=== PATIENT | female | born 1935 | race Caucasian/White ===

== ENCOUNTER 2023-03-29 15:20 | Day surgery (SDC) | payer MEDICARE, BC ==
[2023-03-29] MEDS ORDERED: LIDOCAINE HCL 1% 50 MG/5 ML VL PF IJ ONE (15:21)
[2023-03-29] MEDS ORDERED: BUPIVACAINE 0.5% VIAL IJ ONE (15:21)
[2023-03-29] MEDS ORDERED: Depo-Medrol 40 MG/ML IM ONE (15:21)
--- NOTE | 2023-03-29 19:22 | XRAY ---
Indication: Right knee injection. Intraoperative fluoroscopy provided for 6 seconds. Single digital spot image submitted for interpretation demonstrates needle tip projecting over the right femur intercondylar notch. Small amount of contrast injected for needle tip placement. Correlate with intraoperative findings/report.
--- NOTE | 2023-03-30 09:30 | XRAY ---
6 seconds of fluoroscopy was used in surgery for a right intra-articular knee injection.
== END 2023-03-29 16:45 | disposition home or self-care (01) ==
LOC: SDC-PAIN 15:20
PROVIDERS: ATTEND Psychiatry & Neurology Pain Medicine
DX: M17.11 Unilateral primary osteoarthritis, right knee (principal); E11.9 Type 2 diabetes mellitus without complications; Z79.899 Other long term (current) drug therapy
CPT/HCPCS: 20610; 73560; 77002; 82947; J1030; J2001; Q9966

== ENCOUNTER 2023-05-24 08:24 | Day surgery (SDC) | payer MEDICARE, BC ==
[2023-05-24] MEDS ORDERED: LIDOCAINE HCL 2% 100 MG/5 ML IJ ONE (08:25)
[2023-05-24] MEDS ORDERED: Depo-Medrol 40 MG/ML IM ONE (08:25)
[2023-05-24] MEDS ORDERED: DIPRIVAN 200 MG/20 ML IV ONE (10:39)
[2023-05-24] MEDS ORDERED: Lactated Ringers 1,000 ML IV ONE (11:16)
--- NOTE | 2023-05-24 11:33 | XRAY ---
Indication: Bilateral L4-S1 MBB. Intraoperative fluoroscopy provided for 11 seconds. Single digital spot image submitted for interpretation demonstrates posterior needle tips projecting over the expected left and right L4-S1 nerve roots. Correlate with intraoperative findings/report.
--- NOTE | 2023-05-24 12:00 | XRAY ---
11 seconds of fluoroscopy was used in surgery for a bilateral L4-S1 MBB.
== END 2023-05-24 11:07 | disposition home or self-care (01) ==
LOC: SDC-PAIN 08:24
PROVIDERS: ATTEND Psychiatry & Neurology Pain Medicine
DX: M47.816 Spondylosis without myelopathy or radiculopathy, lumbar region (principal); E11.9 Type 2 diabetes mellitus without complications; Z79.899 Other long term (current) drug therapy
CPT/HCPCS: 64493; 64494; 72020; 77002; 82947; J1030; J2704

== ENCOUNTER 2023-06-14 09:27 | Day surgery (SDC) | payer MEDICARE, BC ==
[2023-06-14] MEDS ORDERED: Depo-Medrol 40 MG/ML IM ONE (09:28)
[2023-06-14] MEDS ORDERED: BUPIVACAINE 0.5% VIAL IJ ONE (09:28)
[2023-06-14] MEDS ORDERED: DIPRIVAN 200 MG/20 ML IV ONE (10:55)
--- NOTE | 2023-06-14 12:43 | XRAY ---
Indication: Bilateral L4-S1 MBB. Intraoperative fluoroscopy provided for 9 seconds. Single digital spot image submitted for interpretation demonstrates posterior needle tips projecting over the expected left and right L4-S1 nerve roots. Correlate with intraoperative findings/report.
--- NOTE | 2023-06-14 13:02 | XRAY ---
9 seconds of fluoroscopy was used in surgery for a bilateral L4-S1 MBB.
[2023-06-14] MEDS ORDERED: Lactated Ringers 1,000 ML IV ONE (13:35)
== END 2023-06-14 11:18 | disposition home or self-care (01) ==
LOC: SDC-PAIN 09:27
PROVIDERS: ATTEND Psychiatry & Neurology Pain Medicine
DX: M47.816 Spondylosis without myelopathy or radiculopathy, lumbar region (principal); E11.9 Type 2 diabetes mellitus without complications; Z79.899 Other long term (current) drug therapy
CPT/HCPCS: 64493; 64494; 72020; 77002; 82947; J1030; J2704

== ENCOUNTER 2023-10-25 08:04 | Day surgery (SDC) | payer MEDICARE, BC ==
[2023-10-25] MEDS ORDERED: Depo-Medrol 40 MG/ML IM ONE (08:05)
[2023-10-25] MEDS ORDERED: BUPIVACAINE 0.5% VIAL IJ ONE (08:05)
[2023-10-25] MEDS ORDERED: XYLOCAINE-MPF 1% 5ML SDV IJ ONE (08:05)
[2023-10-25] MEDS ORDERED: Lactated Ringers 1,000 ML IV ONE (10:43)
[2023-10-25] MEDS ORDERED: DIPRIVAN 200 MG/20 ML IV ONE (10:48)
--- NOTE | 2023-10-25 12:26 | XRAY ---
Indication: Right L4-S1 RFA. Intraoperative fluoroscopy provided for 19 seconds. 3 digital spot images submitted for interpretation demonstrates posterior needle tips projecting over the expected right L4-S1 nerve roots. Correlate with intraoperative findings/report.
--- NOTE | 2023-10-25 12:33 | XRAY ---
19 seconds of fluoroscopy was used in surgery for a right L4-S1 RFA.
== END 2023-10-25 11:19 | disposition home or self-care (01) ==
LOC: SDC-PAIN 08:04
PROVIDERS: ATTEND Psychiatry & Neurology Pain Medicine
DX: M47.816 Spondylosis without myelopathy or radiculopathy, lumbar region (principal); E11.9 Type 2 diabetes mellitus without complications
CPT/HCPCS: 64635; 64636; 72100; 77002; 82947; 99100; J1030; J2704

== ENCOUNTER 2023-11-01 07:31 | Day surgery (SDC) | payer MEDICARE, BC ==
[2023-11-01] MEDS ORDERED: Depo-Medrol 40 MG/ML IM ONE (07:32)
[2023-11-01] MEDS ORDERED: XYLOCAINE-MPF 1% 5ML SDV IJ ONE (07:32)
[2023-11-01] MEDS ORDERED: BUPIVACAINE 0.5% VIAL IJ ONE (07:32)
[2023-11-01] MEDS ORDERED: DIPRIVAN 200 MG/20 ML IV ONE (09:44)
--- NOTE | 2023-11-01 11:31 | XRAY ---
Indication: Left L4-S1 RFA. Intraoperative fluoroscopy provided for 33 seconds. 3 digital spot images submitted for interpretation demonstrates posterior needle tips projecting over the expected left L4-S1 nerve roots. Correlate with intraoperative findings/report.
--- NOTE | 2023-11-01 11:33 | XRAY ---
33 seconds of fluoroscopy was used in surgery for a left L4-S1 RFA.
[2023-11-01] MEDS ORDERED: Lactated Ringers 1,000 ML IV ONE (14:05)
== END 2023-11-01 10:20 | disposition home or self-care (01) ==
LOC: SDC-PAIN 07:31
PROVIDERS: ATTEND Psychiatry & Neurology Pain Medicine
DX: M47.816 Spondylosis without myelopathy or radiculopathy, lumbar region (principal); E11.9 Type 2 diabetes mellitus without complications; Z79.899 Other long term (current) drug therapy
CPT/HCPCS: 64635; 64636; 72100; 77002; 82947; 99100; J1030; J2704

== ENCOUNTER 2024-09-05 09:12 | Day surgery (SDC) | payer MEDICARE, BC ==
[2024-09-05] MEDS ORDERED: Decadron 4 MG INJ IV ONE (09:13)
[2024-09-05] MEDS ORDERED: Sodium Chloride 0.9(Preservative Free) 10 ML IJ ONE (09:13)
[2024-09-05] MEDS ORDERED: DIPRIVAN 200 MG/20 ML IV ONE (10:43)
--- NOTE | 2024-09-05 11:19 | XRAY ---
Indication: Left L4-S1 transforaminal DARIELA. Intraoperative fluoroscopy provided for 1 minute 25 seconds. 9 digital spot image submitted for interpretation demonstrates posterior needle tips projecting over expected left L4 and L5 nerve roots. Small amount of contrast injected for needle tip placement. Correlate with intraoperative findings/report.
--- NOTE | 2024-09-05 11:36 | XRAY ---
One minute and 25 seconds of fluoroscopy was used in surgery for a left L4-S1 transforaminal DARIELA.
== END 2024-09-05 11:26 | disposition home or self-care (01) ==
LOC: SDC-PAIN 09:12
PROVIDERS: ATTEND Psychiatry & Neurology Pain Medicine
DX: M54.16 Radiculopathy, lumbar region (principal); E11.9 Type 2 diabetes mellitus without complications
CPT/HCPCS: 64483; 64484; 72100; 77003; 82947; J1100; J2704; Q9966

== ENCOUNTER 2024-10-30 07:44 | Day surgery (SDC) | payer MEDICARE, BC ==
[2024-10-30] MEDS ORDERED: propofoL IV ONE (09:13)
--- NOTE | 2024-10-30 10:34 | XRAY ---
Indication: Left SI joint injection. Intraoperative fluoroscopy provided for 12 seconds. 3 digital spot image submitted for interpretation demonstrates posterior needle tip projecting over left SI joint. Small amount of contrast injected for needle tip placement. Correlate with intraoperative findings/report.
--- NOTE | 2024-10-30 10:42 | XRAY ---
12 seconds of fluoroscopy was used in surgery for a left sacroiliac joint injection.
== END 2024-10-30 09:44 | disposition home or self-care (01) ==
LOC: SDC-PAIN 07:44
PROVIDERS: ATTEND Psychiatry & Neurology Pain Medicine
DX: M46.1 Sacroiliitis, not elsewhere classified (principal); E11.9 Type 2 diabetes mellitus without complications
CPT/HCPCS: 27096; 72170; 77002; 82947; 99100; J2704; Q9966